=== PATIENT | male | born 1955 | race Caucasian/White ===

== ENCOUNTER 2019-02-05 07:59 | Day surgery (SDC) | payer OTHER ==
[2019-02-05] MEDS ORDERED: Lactated Ringers 1,000 ML IV SCH (08:00)
[2019-02-05] MEDS ORDERED: Propofol 200 MG/20 ML SDV IV ONE (08:00)
[2019-02-05] MEDS ORDERED: Sodium Chloride 0.9% 10 ML Syringe FLUSH PRN (08:00)
[2019-02-05] MEDS ORDERED: Lidocaine 2% 5 ML SDV INJECT ONE (08:00)
--- NOTE | 2019-02-05 08:21 | PCM.HP.2 ---
H&P History of Present Illness - General Date of Service: 02/05/19 Admit Problem/Dx: Admission Diagnosis/Problem Admission Diagnosis/Problem Colonoscopy Source of Information: Patient - History of Present Illness Initial Comments - Free Text/Narative: Pt with personal hx of colon polyps. Due for follow up scope. No complaints. - Related Data Allergies/Adverse Reactions: Allergies Allergy/AdvReac Type Severity Reaction Status Date / Time fluticasone Allergy Rash Verified 01/28/18 07:22 [From Advair Diskus] rofecoxib [From Vioxx] Allergy Rash Verified 01/28/18 07:22 salmeterol Allergy Rash Verified 01/28/18 07:22 [From Advair Diskus] Home Medications: Home Meds Finasteride [Proscar] 1.25 mg PO DAILY 01/27/18 [History] Fluticasone Propionate [Flonase] 2 sprays NASBOTH DAILY PRN 01/27/18 [History] Sertraline [Zoloft] 50 mg PO DAILY 01/27/18 [History] Amoxicillin/Potassium Clav [Augmentin 875-125 Tablet] 1 each PO BID 02/04/19 [ History] Hydrochlorothiazide/Losartan [Hyzaar 100-12.5 MG] 1 tab PO DAILY 02/04/19 [ History] Past Medical History HEENT History: Reports: Allergic Rhinitis, Impaired Vision, Other (See Below) Other HEENT History: ASTIGMATISM, MYOPIA, PRESBYOPIA, RETINAL TEAR, SENILE NUCLEAR SCLEROSIS, VITREOUS FLOATERS Cardiovascular History: Reports: Hypertension, Other (See Below) Other Cardiovascular History: ESSENTIAL HYPERTENSION Respiratory History: Reports: Sleep Apnea Gastrointestinal History: Reports: None Genitourinary History: Reports: None Musculoskeletal History: Reports: Back Pain, Chronic Neurological History: Reports: None Psychiatric History: Reports: None Endocrine/Metabolic History: Reports: Obesity/BMI 30+ Hematologic History: Reports: None Immunologic History: Reports: None Oncologic (Cancer) History: Reports: None Dermatologic History: Reports: None - Past Surgical History Head Surgeries/Procedures: Reports: None HEENT Surgical History: Reports: Eye Surgery Cardiovascular Surgical History: Reports: None Respiratory Surgical History: Reports: None GI Surgical History: Reports: Colonoscopy, Hernia Repair/Other Endocrine Surgical History: Reports: None Neurological Surgical History: Reports: None Musculoskeletal Surgical History: Reports: None Oncologic Surgical History: Reports: None Dermatological Surgical History: Reports: None Social & Family History - Caffeine Use Caffeine Use: Reports: Soda H&P Review of Systems - Review of Systems: Review Of Systems: See Below General: Reports: No Symptoms Pulmonary: Reports: No Symptoms Cardiovascular: Reports: No Symptoms Gastrointestinal: Reports: No Symptoms Genitourinary: Reports: No Symptoms Exam - Exam Exam: See Below - Vital Signs Weight: 115.212 kg - Exam General: Alert, Oriented, Cooperative HEENT: Hearing Intact, Other (NCAT) Lungs: Clear to Auscultation, Normal Respiratory Effort Cardiovascular: Regular Rate, Regular Rhythm GI/Abdominal Exam: Normal Bowel Sounds, Soft, Non-Tender Back Exam: Normal Inspection *Q Meaningful Use (ADM) - VTE *Q VTE Pharmacological Contraindications *Q: Patient Scheduled Surgery - Problem List (1) Colon polyps SNOMED Code(s): 14770916 ICD Code: K63.5 - POLYP OF COLON Status: Acute Current Visit: No Problem Details: transverse, descending, sigmoid colon polyps (2) Rectal polyp SNOMED Code(s): 96583189 ICD Code: K62.1 - RECTAL POLYP Status: Acute Current Visit: No Problem Details: x 2 (3) Sigmoid diverticulosis SNOMED Code(s): 604957286 ICD Code: K57.30 - DVRTCLOS OF LG INT W/O PERFORATION OR ABSCESS W/O BLEEDING Status: Acute Current Visit: No Problem List Initiated/Reviewed/Updated: Yes Orders Last 24hrs: Active Orders 24 hr Category Date Time Status Patient Status [ADT] Routine ADT 02/05/19 08:00 Ordered Patient to Empty Bladder [RC] ASDIRECTED Care 02/05/19 08:00 Active Verify Patient Consent Obtain [RC] ASDIRECTED Care 02/05/19 08:00 Active Nothing Per Oral Diet [DIET] Diet 02/05/19 Breakfast Ordered Lactated Ringers [Ringers, Lactated] 1,000 ml Med 02/05/19 08:00 Active IV ASDIRECTED Sodium Chloride 0.9% [Saline Flush] Med 02/05/19 08:00 Active 10 ml FLUSH ASDIRECTED PRN Peripheral IV Insertion Adult [OM.PC] Routine Oth 02/05/19 08:00 Ordered Resuscitation Status Routine Resus Stat 02/04/19 13:39 Ordered Medication Orders Lactated Ringer's (Ringers, Lactated) 1,000 mls @ 125 mls/hr IV ASDIRECTED SHIRLEY Sodium Chloride (Saline Flush) 10 ml FLUSH ASDIRECTED PRN PRN Reason: Keep Vein Open Assessment/Plan Comment:: c scope procedure and risks explained to the pt to include bleeding, infection and perforation. expressed understanding and asks us to proceed. - Mortality Measure Prognosis:: Good
--- NOTE | 2019-02-05 09:29 | PCM.OPNOTE ---
- General Post-Op/Procedure Note Date of Surgery/Procedure: 02/05/19 Operative Procedure(s): c scope with bx Findings: diverticulosis transverse colon polyp Pre Op Diagnosis: hx of colon polyps. diverticulosis Post-Op Diagnosis: diverticulosis. transverse colon polyp Anesthesia Technique: MAC Primary Surgeon: Elmer Salazar Anesthesia Provider: Khushi Avila Pathology: transverse colon polyp Complications: None Condition: Good Free Text/Narrative:: see dictation
--- NOTE | 2019-02-05 11:31 | OR ---
DATE OF OPERATION: 02/05/2019 SURGEON: Elmer Salazar MD PROCEDURE PERFORMED: Colonoscopy, cold forceps biopsy. PREOPERATIVE DIAGNOSIS: Personal history of colon polyps. POSTOPERATIVE DIAGNOSIS: Polyp of the transverse colon and diverticulosis. INDICATIONS FOR PROCEDURE: This is a 63-year-old white male who had multiple colon polyps removed last year. Due to the number and size, it was recommended that he have a repeat scope at this time. He presents now for followup colonoscopy. DESCRIPTION OF PROCEDURE: After an excellent IV sedation was administered, digital rectal exam was performed. No marked abnormality was noted. Flexible colonoscope was inserted and advanced to the cecum. Prep was excellent. The following findings were noted. Ascending colon, single diverticulum. Transverse colon, a small 2 mm polyp, biopsied with cold biopsy forceps. Descending colon, unremarkable. Sigmoid, scattered diverticula. Rectum and anus, unremarkable. Colon was deflated. Scope was removed. Patient tolerated the procedure well. Results by letter. /[id number] /MODL
== END 2019-02-05 10:22 | disposition home or self-care (01) ==
LOC: FB.SDS 07:59
PROVIDERS: ATTEND Surgery
DX: Z12.11 Encounter for screening for malignant neoplasm of colon (principal); K57.30 Diverticulosis of large intestine without perforation or abscess without bleeding; D12.3 Benign neoplasm of transverse colon; I10 Essential (primary) hypertension; E66.9 Obesity, unspecified; Z86.010 Personal history of colon polyps; Z88.8 Allergy status to other drugs, medicaments and biological substances; Z79.899 Other long term (current) drug therapy; Z68.34 Body mass index [BMI] 34.0-34.9, adult
CPT/HCPCS: 88305; J2001; J2704; J7120